=== PATIENT | male | born 1990 ===

== ENCOUNTER 2017-12-01 22:32 | Emergency (ER) | payer SELFPAY ==
[2017-12-01 22:41] VITALS: BP 118/73; PULSE 75; RESP 18; TEMP 98.1; O2SAT 99
--- NOTE | 2017-12-01 22:51 | ED PDOC ---
HPI: General Adult Time Seen by Provider: 12/01/17 22:49 Chief Complaint (Nursing): Medical Clearance Chief Complaint (Provider): back pain History Per: Patient (27 y/o male in police custody, here for evaluation of back pain x 2 days. Unsure of cause. NOtes worsening of pain with movement. NO OTC medications prior to arrival.) Past Medical History Reviewed: Historical Data, Nursing Documentation, Vital Signs Vital Signs: Last Vital Signs Temp 98.1 F 12/01/17 22:37 Pulse 75 12/01/17 22:37 Resp 18 12/01/17 22:37 BP 118/73 12/01/17 22:37 Pulse Ox 99 12/01/17 22:37 - Family History Family History: States: No Known Family Hx - Allergies Allergies/Adverse Reactions: Allergies Allergy/AdvReac Type Severity Reaction Status Date / Time No Known Allergies Allergy Verified 12/01/17 22:41 Review of Systems ROS Statement: Except As Marked, All Systems Reviewed And Found Negative Musculoskeletal: Positive for: Back Pain Physical Exam - Reviewed Nursing Documentation Reviewed: Yes Vital Signs Reviewed: Yes - Physical Exam Appears: Positive for: Well, Non-toxic, No Acute Distress Head Exam: Positive for: ATRAUMATIC, NORMAL INSPECTION, NORMOCEPHALIC Skin: Positive for: Normal Color, Warm, DRY Eye Exam: Positive for: EOMI, Normal appearance, PERRL ENT: Positive for: Normal ENT Inspection Neck: Positive for: Normal, Painless ROM Cardiovascular/Chest: Positive for: Regular Rate, Rhythm Respiratory: Positive for: CNT, Normal Breath Sounds Gastrointestinal/Abdominal: Positive for: Normal Exam, Bowel Sounds, Soft Back: Positive for: Normal Inspection, Vertebral Tenderness (left parathoracolumbar tenderness noted. No obvious spinal tenderness.) Extremity: Positive for: Normal ROM Neurologic/Psych: Positive for: Alert, Oriented - ECG O2 Sat by Pulse Oximetry: 99 - Progress ED Course And Treament: Motrin 600mg x 1 dose Disposition - Clinical Impression Clinical Impression: Back strain - Patient ED Disposition Is Patient to be Admitted: No - Disposition Disposition: Routine/Home Disposition Time: 22:51 Condition: FAIR Additional Instructions: PATIENT IS MEDICALLY AND PSYCHIATRICALLY CLEARED FOR INCARCERATION. Instructions: Acute Low Back Pain (DC)
== END 2017-12-02 00:12 ==
LOC: H.ER 22:32
DX: M54.5 Low back pain